=== PATIENT | male | born 1930 | race Caucasian/White ===

== ENCOUNTER → 2016-09-18 | Outpatient (CLI) | payer MEDICARE, OTHER ==
[2016-09-18 18:09] LABS: BASO % 0.5 % (0.0-1.0); EOS # 0.2 K/mm3 (0.0-0.50); EOS % 2.9 % (0.0-3.0); LARGE UNSTAINED CELL # 0.2 K/mm3 (0.0-0.4); LARGE UNSTAINED CELL % 2.4 % (0.0-4.0); LYMPH # 1.9 K/mm3 (1.5-4.5); LYMPH % 20.8 % (24.0-44.0); MEAN CORPUSCULAR HEMOGLOBIN 31.3 pg (27.0-33.0); MEAN CORPUSCULAR HGB CONC 34.2 g/dl (32.0-36.5); MEAN CORPUSCULAR VOLUME 91.6 fl (80.0-96.0); MONO # 0.5 K/mm3 (0.0-0.8); MONO % 5.4 % (0.0-5.0); NEUTROPHILS # 6.1 K/mm3 (1.8-7.7); NEUTROPHILS % 67.9 % (36.0-66.0); PLATELET COUNT, AUTOMATED 199 k/mm3 (150-450); WHITE BLOOD COUNT 8.9 K/mm3 (4.0-10.0)
[2016-09-18 18:37] LABS: ALBUMIN 4.2 GM/DL (3.2-5.2); ALBUMIN/GLOBULIN RATIO 1.31 (1.00-1.93); ALKALINE PHOSPHATASE 72 U/L (45-117); ALT/SGPT 21 U/L (12-78); ANION GAP 9 MEQ/L (8-16); AST/SGOT 25 U/L (15-37); BILIRUBIN,TOTAL 0.8 MG/DL (0.2-1.0); BLOOD UREA NITROGEN 17 MG/DL (7-18); CALCIUM LEVEL 9.7 MG/DL (8.8-10.2); CARBON DIOXIDE LEVEL 33 MEQ/L (21-32); CHLORIDE LEVEL 102 MEQ/L (98-107); CREATININE FOR GFR 1.14 MG/DL (0.70-1.30); GLOMERULAR FILTRATION RATE > 60.0 (>35); GLUCOSE, FASTING 84 MG/DL (83-110); POTASSIUM SERUM 4.2 MEQ/L (3.5-5.1); SODIUM LEVEL 144 MEQ/L (136-145); TOTAL PROTEIN 7.4 GM/DL (6.4-8.2)
[2016-09-18 21:17] LABS: ERYTHROCYTE SEDIMENTATION RATE 2 mm/hr (0-30)
== END ==
LOC: M SMT 13:25
PROVIDERS: ATTEND Internal Medicine Rheumatology
DX: M05.79 Rheumatoid arthritis with rheumatoid factor of multiple sites without organ or systems involvement (principal); M51.36 Other intervertebral disc degeneration, lumbar region; Z79.899 Other long term (current) drug therapy

== ENCOUNTER → 2016-10-09 | Outpatient (CLI) | payer MEDICARE, OTHER ==
[2016-10-09 13:59] LABS: ALBUMIN 3.7 GM/DL (3.2-5.2); ALBUMIN/GLOBULIN RATIO 1.28 (1.00-1.93); ALKALINE PHOSPHATASE 60 U/L (45-117); ALT/SGPT 17 U/L (12-78); ANION GAP 7 MEQ/L (8-16); AST/SGOT 20 U/L (15-37); BILIRUBIN,TOTAL 0.6 MG/DL (0.2-1.0); BLOOD UREA NITROGEN 15 MG/DL (7-18); CALCIUM LEVEL 8.7 MG/DL (8.8-10.2); CARBON DIOXIDE LEVEL 29 MEQ/L (21-32); CHLORIDE LEVEL 109 MEQ/L (98-107); CHOLESTEROL LEVEL 176 MG/DL (<200); CREATININE FOR GFR 1.16 MG/DL (0.70-1.30); GLOMERULAR FILTRATION RATE > 60.0 (>35); GLUCOSE, FASTING 95 MG/DL (83-110); POTASSIUM SERUM 4.1 MEQ/L (3.5-5.1); SODIUM LEVEL 145 MEQ/L (136-145); TOTAL PROTEIN 6.6 GM/DL (6.4-8.2); TRIGLYCERIDES LEVEL 102 MG/DL (<150)
== END ==
LOC: M SMT 08:22
PROVIDERS: ATTEND Internal Medicine
DX: E78.00 Pure hypercholesterolemia, unspecified (principal); Z85.51 Personal history of malignant neoplasm of bladder

== ENCOUNTER 2017-02-22 06:07 | Day surgery (SDC) | payer MEDICARE, OTHER ==
[~2017-02-22] VITALS: Ht 167.6 cm; Wt 65.8 kg
[~2017-02-22 06:07] MED LIST: ACETAMINOPHEN 325 MG TAB PO PRN; ATOR1TAB19 PO; BETAMETHASONE SOLUSPAN 6MG/ML INJ 5ML (J0702) As Ordered ONE; HEALON DUET (HEALON 10MG/ML 0.55ML & HEALON ENDOCOAT 30MG/ML 0.85ML) As Ordered ONE; HYDR12.55 PO; LIDOCAINE 2% W/EPIN INJ 20ML **PRES FREE As Ordered ONE; LIDOCAINE 4% INJ 5 ML AMP As Ordered ONE; LR 500 ML IV ONE; POVIDONE-IODINE 5% OPHTH PREP SOL 30ML As Ordered ONE; TOBRADEX OPHTH OINT 3.5 GM As Ordered ONE; TOBRAMYCIN INJ 80 MG/2 ML VIAL (J3260) As Ordered ONE; VITA100072 PO; VITA2000 PO; mitoMYcin 0.2 MG/VIAL KIT FOR OPHTHALMIC USE (J7315 PER 0.2MG) As Ordered ONE
[2017-02-22] MEDS ORDERED: LIDOCAINE 3.5 % 1ML OPHTH TOPICAL GEL OU ONE (07:00)
[2017-02-22] MEDS ORDERED: OFLOXACIN 0.3 % (OCUFLOX) OPTH SOL 5ML OS ONE (07:00)
[2017-02-22] MEDS ORDERED: PROPARACAINE 0.5% OPHTH SOL 15ML XX PRN (07:01)
[2017-02-22] MEDS ORDERED: MIDAZOLAM INJ 2 MG/2 ML VIAL (J2250) As Ordered ONE (07:42)
[2017-02-22] MEDS ORDERED: fentaNYL 100 MCG/2 ML INJECTION (J3010) As Ordered ONE (07:42)
[2017-02-22] MEDS ORDERED: AcetaZOLAMIDE 500 MG ER CAP As Ordered ONE (08:48)
[2017-02-22 08:50] VITALS: BP 160/77
[2017-02-22] MEDS ORDERED: AcetaZOLAMIDE 500 MG ER CAP PO ONE (09:00)
[2017-02-22] MEDS ORDERED: KETOROLAC 0.5% OPHTH SOLN XX ONE (09:00)
[2017-02-22] MEDS ORDERED: TRIMETHOBENZAMIDE 300 MG CAP PO PRN (09:00)
--- NOTE | 2017-03-22 14:50 | RO ---
DATE OF PROCEDURE: 02/22/2017 PREPROCEDURE DIAGNOSIS: Painful eye and glaucoma, left eye. POSTPROCEDURE DIAGNOSIS: Painful eye and glaucoma left eye. PROCEDURE: Insertion of express shunt and ECP. SURGEON: Dr. Michael Willis HAIR WEAVER: None. ANESTHESIA: Local IV standby. COMPLICATIONS: None. DESCRIPTION OF PROCEDURE: The patient was brought to the operating room and laid in supine position. The eye was prepped and draped in a sterile fashion for ophthalmic surgery following which a lid speculum was placed. A sideport incision was made and EndoCoat was injected into the anterior chamber. Temporal clear corneal incision was then made with a 2.5 mm keratome and Healon was placed in the ciliary sulcus. Ciliary processes were reviewed on the video screen with the help of the EndoProbe and endocyclophotocoagulation was done 360 degrees at 0.25 milliwatts. Good results were noted as noticed by shrinking of the ciliary processes on the video screen. After that, the excess viscoelastic was aspirated. The wound was closed using #10-0 nylon suture and attention was then diverted towards placement of the X-PRESS shunt. Limbal base conjunctival peritomy was done all the way to the blue line followed by hemostasis as necessary. A limbal base scleral flap measuring 4 mm x 3 mm was then created and lifted and the anterior chamber was entered underneath it with the help of the 27-gauge needle which was subsequently withdrawn. Through the same track, an EXPRESS shunt was placed and was draped over by the scleral flap. Conjunctiva was then flat to making the flap. Mitomycin 0.2 mg/mL was placed over the scleral flap for 3 minutes followed by copious irrigation with balanced salt solution. Conjunctiva was then closed using #8-0 Vicryl sutures. No leaks were noted. The lid speculum was removed. TobraDex ointment was applied. The eye was patched and the patient was returned to the recovery room in stable condition. SANDRITA
== END 2017-02-22 08:55 | disposition home or self-care (01) ==
LOC: M SDC 06:07
PROVIDERS: ATTEND Ophthalmology
DX: H40.9 Unspecified glaucoma (principal); H57.12 Ocular pain, left eye; I10 Essential (primary) hypertension; E78.00 Pure hypercholesterolemia, unspecified; K21.9 Gastro-esophageal reflux disease without esophagitis; M06.9 Rheumatoid arthritis, unspecified; T88.59XD Other complications of anesthesia, subsequent encounter; Z79.899 Other long term (current) drug therapy; Z79.82 Long term (current) use of aspirin; Z87.891 Personal history of nicotine dependence; Z87.448 Personal history of other diseases of urinary system
CPT/HCPCS: 66183; 66711; C1783; J2250; J3010; J7315

== ENCOUNTER → 2017-03-15 | Outpatient (CLI) | payer MEDICARE, OTHER ==
[~2017-03-15] MED LIST changes: -ACETAMINOPHEN 325 MG TAB PO PRN; -BETAMETHASONE SOLUSPAN 6MG/ML INJ 5ML (J0702) As Ordered ONE; -HEALON DUET (HEALON 10MG/ML 0.55ML & HEALON ENDOCOAT 30MG/ML 0.85ML) As Ordered ONE; -LIDOCAINE 2% W/EPIN INJ 20ML **PRES FREE As Ordered ONE; -LIDOCAINE 4% INJ 5 ML AMP As Ordered ONE; -LR 500 ML IV ONE; -POVIDONE-IODINE 5% OPHTH PREP SOL 30ML As Ordered ONE; -TOBRADEX OPHTH OINT 3.5 GM As Ordered ONE; -TOBRAMYCIN INJ 80 MG/2 ML VIAL (J3260) As Ordered ONE; -mitoMYcin 0.2 MG/VIAL KIT FOR OPHTHALMIC USE (J7315 PER 0.2MG) As Ordered ONE
[2017-03-15 13:44] LABS: BASO # 0.1 K/mm3 (0.0-0.2); BASO % 0.8 % (0.0-1.0); EOS # 0.1 K/mm3 (0.0-0.50); EOS % 1.6 % (0.0-3.0); LARGE UNSTAINED CELL # 0.1 K/mm3 (0.0-0.4); LARGE UNSTAINED CELL % 1.1 % (0.0-4.0); LYMPH # 1.7 K/mm3 (1.5-4.5); LYMPH % 19.5 % (24.0-44.0); MEAN CORPUSCULAR HEMOGLOBIN 31.1 pg (27.0-33.0); MEAN CORPUSCULAR HGB CONC 34.3 g/dl (32.0-36.5); MEAN CORPUSCULAR VOLUME 90.7 fl (80.0-96.0); MONO # 0.6 K/mm3 (0.0-0.8); MONO % 6.7 % (0.0-5.0); NEUTROPHILS # 5.9 K/mm3 (1.8-7.7); NEUTROPHILS % 70.3 % (36.0-66.0); PLATELET COUNT, AUTOMATED 179 k/mm3 (150-450); RED CELL DISTRIBUTION WIDTH 12.8 % (11.5-14.5); WHITE BLOOD COUNT 8.3 K/mm3 (4.0-10.0)
[2017-03-15 13:51] LABS: ALBUMIN 3.6 GM/DL (3.2-5.2); ALBUMIN/GLOBULIN RATIO 1.13 (1.00-1.93); ALKALINE PHOSPHATASE 74 U/L (45-117); ALT/SGPT 22 U/L (12-78); ANION GAP 8 MEQ/L (8-16); AST/SGOT 21 U/L (15-37); BILIRUBIN,TOTAL 0.6 MG/DL (0.2-1.0); BLOOD UREA NITROGEN 12 MG/DL (7-18); CALCIUM LEVEL 8.6 MG/DL (8.8-10.2); CARBON DIOXIDE LEVEL 28 MEQ/L (21-32); CHLORIDE LEVEL 107 MEQ/L (98-107); CREATININE FOR GFR 1.13 MG/DL (0.70-1.30); GLOMERULAR FILTRATION RATE > 60.0 (>35); GLUCOSE, FASTING 76 MG/DL (83-110); POTASSIUM SERUM 4.3 MEQ/L (3.5-5.1); SODIUM LEVEL 143 MEQ/L (136-145); TOTAL PROTEIN 6.8 GM/DL (6.4-8.2)
== END ==
LOC: M SMT 09:38
PROVIDERS: ATTEND Internal Medicine Rheumatology
DX: E55.9 Vitamin D deficiency, unspecified (principal); M06.09 Rheumatoid arthritis without rheumatoid factor, multiple sites; M85.39 Osteitis condensans, multiple sites; Z79.899 Other long term (current) drug therapy

== ENCOUNTER → 2017-04-06 | Outpatient (REF) | payer MEDICARE, OTHER ==
[2017-04-06 14:12] LABS: VITAMIN B12 LEVEL 714 PG/ML (247-911)
[2017-04-06 14:15] LABS: MEAN CORPUSCULAR HGB CONC 35.5 g/dl (32.0-36.5); MEAN CORPUSCULAR VOLUME 90.1 fl (80.0-96.0); RED CELL DISTRIBUTION WIDTH 12.8 % (11.5-14.5); WHITE BLOOD COUNT 6.3 K/mm3 (4.0-10.0)
[2017-04-06 14:24] LABS: ALBUMIN 3.7 GM/DL (3.2-5.2); ALBUMIN/GLOBULIN RATIO 1.23 (1.00-1.93); ALKALINE PHOSPHATASE 71 U/L (45-117); ALT/SGPT 20 U/L (12-78); ANION GAP 10 MEQ/L (8-16); AST/SGOT 18 U/L (15-37); BILIRUBIN,TOTAL 0.8 MG/DL (0.2-1.0); BLOOD UREA NITROGEN 12 MG/DL (7-18); CALCIUM LEVEL 9.2 MG/DL (8.8-10.2); CARBON DIOXIDE LEVEL 25 MEQ/L (21-32); CHLORIDE LEVEL 108 MEQ/L (98-107); CREATININE FOR GFR 0.99 MG/DL (0.70-1.30); GLOMERULAR FILTRATION RATE > 60.0 (>35); GLUCOSE, FASTING 102 MG/DL (83-110); POTASSIUM SERUM 3.8 MEQ/L (3.5-5.1); SODIUM LEVEL 143 MEQ/L (136-145); TOTAL PROTEIN 6.7 GM/DL (6.4-8.2)
== END ==
LOC: M LABDRAW1 13:32
PROVIDERS: ATTEND Internal Medicine
DX: E78.00 Pure hypercholesterolemia, unspecified (principal); L40.50 Arthropathic psoriasis, unspecified; E53.8 Deficiency of other specified B group vitamins; C67.9 Malignant neoplasm of bladder, unspecified; N40.0 Benign prostatic hyperplasia without lower urinary tract symptoms

== ENCOUNTER → 2017-04-06 | Outpatient (REF) | payer MEDICARE, OTHER | LOC: M LABDRAW1 13:33 | PROVIDERS: ATTEND Urology | DX: C67.9 Malignant neoplasm of bladder, unspecified (principal); N40.0 Benign prostatic hyperplasia without lower urinary tract symptoms ==

== ENCOUNTER → 2017-10-15 | Outpatient (REF) | payer MEDICARE, OTHER ==
[2017-10-15 12:15] LABS: ALBUMIN 3.7 GM/DL (3.2-5.2); ALBUMIN/GLOBULIN RATIO 1.19 (1.00-1.93); ALKALINE PHOSPHATASE 66 U/L (45-117); ALT/SGPT 19 U/L (12-78); ANION GAP 5 MEQ/L (8-16); AST/SGOT 23 U/L (7-37); BILIRUBIN,TOTAL 0.4 MG/DL (0.2-1.0); BLOOD UREA NITROGEN 13 MG/DL (7-18); CALCIUM LEVEL 8.9 MG/DL (8.8-10.2); CARBON DIOXIDE LEVEL 30 MEQ/L (21-32); CHLORIDE LEVEL 108 MEQ/L (98-107); CHOLESTEROL LEVEL 177 MG/DL (<200); CHOLESTEROL RISK RATIO 3.687 (<5); CREATININE FOR GFR 1.15 MG/DL (0.70-1.30); GLOMERULAR FILTRATION RATE > 60.0 (>35); GLUCOSE, FASTING 94 MG/DL (70-100); HDL CHOLESTEROL 48 MG/DL (>40); LDL CHOLESTEROL 105.2 MG/DL (<100); NON-HDL-C 129 MG/DL; SODIUM LEVEL 143 MEQ/L (136-145); TOTAL PROTEIN 6.8 GM/DL (6.4-8.2); TRIGLYCERIDES LEVEL 119 MG/DL (<150)
== END ==
LOC: M SFHCPLAZ 07:56
DX: E78.00 Pure hypercholesterolemia, unspecified (principal); Z85.51 Personal history of malignant neoplasm of bladder
CPT/HCPCS: 80053

== ENCOUNTER → 2018-04-09 | Outpatient (REF) | payer MEDICARE, OTHER ==
[2018-04-09 11:51] LABS: BASO # 0.1 10^3/uL (0.0-0.2); BASO % 0.9 % (0.0-1.0); EOS # 0.2 10^3/uL (0.0-0.50); EOS % 2.5 % (0.0-3.0); HEMATOCRIT 48.7 % (42.0-52.0); HEMOGLOBIN 16.8 g/dl (13.5-17.5); IMMATURE GRANULOCYTE % 0.3 % (0-3.0); LYMPH # 1.8 10^3/uL (1.5-4.5); LYMPH % 27.3 % (24.0-44.0); MEAN CORPUSCULAR HGB CONC 34.5 g/dl (32.0-36.5); MEAN CORPUSCULAR VOLUME 89.9 fl (80.0-96.0); MONO # 0.5 10^3/uL (0.0-0.8); MONO % 7.9 % (0.0-5.0); NEUTROPHILS # 4.1 10^3/uL (1.8-7.7); NEUTROPHILS % 61.1 % (36.0-66.0); PLATELET COUNT, AUTOMATED 174 10^3/uL (150-450); RED BLOOD COUNT 5.42 10^6/uL (4.30-6.10); RED CELL DISTRIBUTION WIDTH 13.1 % (11.5-14.5); WHITE BLOOD COUNT 6.7 10^3/uL (4.0-10.0)
[2018-04-09 12:36] LABS: ALBUMIN/GLOBULIN RATIO 1.29 (1.00-1.93); ALKALINE PHOSPHATASE 65 U/L (45-117); ALT/SGPT 21 U/L (12-78); ANION GAP 12 MEQ/L (8-16); AST/SGOT 21 U/L (7-37); BILIRUBIN,TOTAL 0.6 MG/DL (0.2-1.0); BLOOD UREA NITROGEN 12 MG/DL (7-18); CALCIUM LEVEL 9.2 MG/DL (8.8-10.2); CARBON DIOXIDE LEVEL 28 MEQ/L (21-32); CHLORIDE LEVEL 103 MEQ/L (98-107); GLOMERULAR FILTRATION RATE > 60.0 (>35); GLUCOSE, FASTING 82 MG/DL (70-100); SODIUM LEVEL 143 MEQ/L (136-145); TOTAL PROTEIN 7.1 GM/DL (6.4-8.2)
[2018-04-09 13:31] LABS: TOTAL 25(OH) VITAMIN D 18.8 NG/ML (30.0-100.0)
== END ==
LOC: M SFHCPLAZ 09:09
DX: Z79.899 Other long term (current) drug therapy (principal)
CPT/HCPCS: 82607

== ENCOUNTER 2018-07-16 03:56 | Emergency (ER) | payer MEDICARE, OTHER ==
[~2018-07-16] VITALS: Ht 165.1 cm; Wt 70.5 kg
[2018-07-16 04:49] LABS: BASO # 0.1 10^3/uL (0.0-0.2); BASO % 0.8 % (0.0-1.0); EOS # 0.1 10^3/uL (0.0-0.50); EOS % 1.8 % (0.0-3.0); HEMATOCRIT 47.8 % (42.0-52.0); HEMOGLOBIN 16.7 g/dl (13.5-17.5); LYMPH # 1.8 10^3/uL (1.5-4.5); LYMPH % 24.5 % (24.0-44.0); MEAN CORPUSCULAR HEMOGLOBIN 31.2 pg (27.0-33.0); MEAN CORPUSCULAR HGB CONC 34.9 g/dl (32.0-36.5); MEAN CORPUSCULAR VOLUME 89.3 fl (80.0-96.0); MONO # 0.7 10^3/uL (0.0-0.8); MONO % 9.8 % (0.0-5.0); NEUTROPHILS # 4.6 10^3/uL (1.8-7.7); NEUTROPHILS % 62.6 % (36.0-66.0); PLATELET COUNT, AUTOMATED 160 10^3/uL (150-450); RED BLOOD COUNT 5.35 10^6/uL (4.30-6.10); WHITE BLOOD COUNT 7.4 10^3/uL (4.0-10.0)
[2018-07-16] MEDS ORDERED: MORPHINE 4 MG/ML 1ML VIAL/SYRINGE (J2270) As Ordered ONE (04:58)
[2018-07-16] MEDS ORDERED: MORPHINE 4 MG/ML 1ML VIAL/SYRINGE (J2270) IV ONE (05:00)
[2018-07-16 05:01] LABS: INR 0.92; PROTHROMBIN TIME 12.4 SECONDS (12.1-14.4)
[2018-07-16 05:02] LABS: PARTIAL THROMBOPLASTIN TIME 26.3 SECONDS (25.4-37.6)
[2018-07-16 05:16] LABS: BLOOD UREA NITROGEN 18 MG/DL (7-18); CALCIUM LEVEL 8.8 MG/DL (8.8-10.2); CARBON DIOXIDE LEVEL 25 MEQ/L (21-32); CHLORIDE LEVEL 103 MEQ/L (98-107); CPK CREATINE PHOSPHOKINASE 174 U/L (39-308); CREATININE FOR GFR 1.21 MG/DL (0.70-1.30); GLOMERULAR FILTRATION RATE > 60.0 (>35); GLUCOSE, FASTING 121 MG/DL (70-100); MB/CK RELATIVE INDEX 2.24 (< OR =4); POTASSIUM SERUM 3.7 MEQ/L (3.5-5.1); SODIUM LEVEL 139 MEQ/L (136-145); TROPONIN I < 0.02 NG/ML (< 0.10)
[2018-07-16] MEDS ORDERED: ISOVUE-370 76% 100ML VIAL (Q9967) As Ordered ONE (05:25)
--- NOTE | 2018-07-16 07:02 | REPVR ---
EXAM: CT Angiography Neck With Contrast EXAM DATE/TIME: 07/16/2018 5:21 AM CLINICAL HISTORY: 88 years old, male; Pain; Other: Radiates to arm; Additional info: Neck pain rad to r arm TECHNIQUE: Axial computed tomographic angiography images of the neck with intravenous contrast using CT angiography protocol. All CT scans at this facility use at least one of these dose optimization techniques: automated exposure control; mA and/or kV adjustment per patient size (includes targeted exams where dose is matched to clinical indication); or iterative reconstruction. Coronal and sagittal reformatted images were created and reviewed. MIP reconstructed images were created and reviewed. CONTRAST: 75 ml of iso administered intravenously. COMPARISON: No relevant prior studies available. FINDINGS: VASCULATURE: Right common carotid artery: There is a small amount of noncalcified plaque in the right common carotid artery. There is a small amount of calcified and noncalcified plaque at the right carotid bulb. Right internal carotid artery: There is a small amount of plaque without significant luminal narrowing at the proximal right internal carotid artery. There is tortuosity of the proximal right internal carotid artery. Right external carotid artery: There is calcified plaque without significant luminal narrowing at the origin of the right external carotid artery. Right vertebral artery: Normal. No significant stenosis. No dissection or occlusion. Left common carotid artery: There is a small amount of noncalcified plaque within the left common carotid artery, without significant luminal narrowing. There is calcified and noncalcified plaque at the left carotid bulb. Left internal carotid artery: There is mild narrowing of the proximal left internal carotid artery, with the stenosis estimated at less than 50% narrowing. The lumen measures 4 mm at its narrowest and 5 mm a short distance further distally. Left external carotid artery: There is a small amount of plaque at the origin of the left external carotid artery, without significant narrowing. Left vertebral artery: No occlusion, significant stenosis, or dissection. Aorta: There is prominent, asymmetric, and mostly noncalcified plaque within the arch of the thoracic aorta. There is no evidence of dissection in the visualized portions of the thoracic aorta. NECK: Retropharyngeal space: The prevertebral soft tissues appear normal. Bones/joints: Degenerative endplate changes are seen at multiple levels in the visualized spine, with disc narrowing most prominent at C5-C6 and C6-C7. Hypertrophic degenerative changes are seen at the articulation of the odontoid process with the anterior arch of C1. Degenerative facet arthropathy is seen at multiple levels in the cervical spine. Soft tissues: Normal. No significant soft tissue swelling. Lung apices: There is minimal paraseptal emphysema in the lung apices. There is mild groundglass opacity in the left upper lobe, abutting the fissure. Esophagus: Fluid is noted in the lumen of the upper esophagus. IMPRESSION: 1. Asymmetric, predominantly noncalcified plaque in the arch of the aorta. 2. Calcified and noncalcified plaque within the bilateral cervical carotid arteries. Mild narrowing estimated at less than 50% stenosis in the proximal left internal carotid artery. No significant stenosis, occlusion, or dissection identified. COMMENT: Reference per NASCET criteria for degree of stenosis: Mild: <50% stenosis. Moderate: 50-69% stenosis. Severe: 70-94% stenosis. Near occlusion: 95-99% stenosis. Electronically signed by: Cally Schultz On 07/16/2018 07:02:35 AM
[2018-07-16 07:30] VITALS: BP 160/85
--- NOTE | 2018-07-16 08:11 | ECGEPIP ---
Stationary ECG Study [facility] - ED Test Date: 2018-07-16 Pat Name: BRANDON PEREZ Department: Room: - Gender: M Extra Hand: lopez : 1930 Requested By: KATIUSKA Norman Order Number: [id number] Reading MD: Francesca France Measurements Intervals [place] Rate: 80 P: -12 VA: 233 QRS: -13 QRSD: 95 T: 73 QT: 279 QTc: 322 Interpretive Statements SINUS RHYTHM WITH FIRST DEGREE AV BLOCK NONSPECIFIC T-WAVE ABNORMALITY ?PRIOR INFERIOR INFARCT NO PRIOR FOR COMPARISON Electronically Signed On 07-16-2018 8:10:45 EST by rFancesca France
--- NOTE | 2018-07-16 13:01 | ED PDOC ---
Post-Departure Follow-Up radiology report faxed to Francesca Dial MD Jul 16, 2018 13:01
== END 2018-07-16 08:07 | disposition home or self-care (01) ==
LOC: M ED 03:56
DX: M50.30 Other cervical disc degeneration, unspecified cervical region (principal); Z87.891 Personal history of nicotine dependence
CPT/HCPCS: 70498; 80048; 82550; 82553; 84484; 85025; 85610; 85730; 93005; 93041; 94760; 96374; 99285; J2270; Q9967

== ENCOUNTER 2018-08-29 10:05 | Outpatient (RCR) | payer MEDICARE, OTHER | END 2018-09-12 | LOC: M PT 10:05 | PROVIDERS: ATTEND Internal Medicine | DX: M54.2 Cervicalgia (principal) ==

== ENCOUNTER → 2018-11-12 | Outpatient (RCR) | payer MEDICARE, OTHER ==
[~2018-11-12] MED LIST changes: +VITA100018 PO; -VITA100072 PO
== END ==
LOC: M PT 10-29 10:18
PROVIDERS: ATTEND Orthopaedic Surgery
DX: M75.41 Impingement syndrome of right shoulder (principal)

== ENCOUNTER → 2019-07-10 | Outpatient (CLI) | payer MEDICARE, OTHER ==
[2019-07-10 10:16] LABS: HEMATOCRIT 50.5 % (42.0-52.0); HEMOGLOBIN 16.7 g/dl (13.5-17.5); MEAN CORPUSCULAR HEMOGLOBIN 30.6 pg (27.0-33.0); MEAN CORPUSCULAR HGB CONC 33.1 g/dl (32.0-36.5); MEAN CORPUSCULAR VOLUME 92.7 fl (80.0-96.0); PLATELET COUNT, AUTOMATED 173 10^3/uL (150-450); RED BLOOD COUNT 5.45 10^6/uL (4.30-6.10); WHITE BLOOD COUNT 6.4 10^3/uL (4.0-10.0)
[2019-07-10 10:58] LABS: ALBUMIN 3.7 GM/DL (3.2-5.2); ALT/SGPT 17 U/L (12-78); BILIRUBIN,TOTAL 0.7 MG/DL (0.2-1.0); BLOOD UREA NITROGEN 15 MG/DL (7-18); CALCIUM LEVEL 8.8 MG/DL (8.8-10.2); CARBON DIOXIDE LEVEL 27 MEQ/L (21-32); CHLORIDE LEVEL 106 MEQ/L (98-107); CHOLESTEROL LEVEL 230 MG/DL (<200); CHOLESTEROL RISK RATIO 4.893 (<5); CREATININE FOR GFR 1.04 MG/DL (0.70-1.30); GLOMERULAR FILTRATION RATE > 60.0 (>35); GLUCOSE, FASTING 94 MG/DL (70-100); HDL CHOLESTEROL 47 MG/DL (>40); LDL CHOLESTEROL 160 MG/DL (<100); MAGNESIUM LEVEL 2.3 MG/DL (1.8-2.4); NON-HDL-C 183 MG/DL; POTASSIUM SERUM 3.9 MEQ/L (3.5-5.1); SODIUM LEVEL 142 MEQ/L (136-145); TOTAL 25(OH) VITAMIN D 27.6 NG/ML (30.0-100.0); TOTAL PROTEIN 6.8 GM/DL (6.4-8.2); TRIGLYCERIDES LEVEL 113 MG/DL (<150)
== END ==
LOC: M PLALAB 08:15
PROVIDERS: ATTEND Internal Medicine
DX: F03.90 Unspecified dementia, unspecified severity, without behavioral disturbance, psychotic disturbance, mood disturbance, and anxiety (principal); E55.9 Vitamin D deficiency, unspecified; Z86.010 Personal history of colon polyps; Z85.51 Personal history of malignant neoplasm of bladder; E78.00 Pure hypercholesterolemia, unspecified; I10 Essential (primary) hypertension

== ENCOUNTER → 2020-01-21 | Outpatient (REF) | payer MEDICARE, OTHER ==
[2020-01-21 12:19] LABS: ALBUMIN 3.7 GM/DL (3.2-5.2); ALT/SGPT 20 U/L (12-78); BILIRUBIN,TOTAL 0.6 MG/DL (0.2-1.0); BLOOD UREA NITROGEN 10 MG/DL (7-18); CALCIUM LEVEL 8.8 MG/DL (8.8-10.2); CARBON DIOXIDE LEVEL 27 MEQ/L (21-32); CHLORIDE LEVEL 111 MEQ/L (98-107); CHOLESTEROL LEVEL 180 MG/DL (<200); CHOLESTEROL RISK RATIO 3.333 (<5); CREATININE FOR GFR 1.02 MG/DL (0.70-1.30); GLOMERULAR FILTRATION RATE > 60.0 (>35); GLUCOSE, FASTING 97 MG/DL (70-100); HDL CHOLESTEROL 54 MG/DL (>40); LDL CHOLESTEROL 110 MG/DL (<100); MAGNESIUM LEVEL 2.2 MG/DL (1.8-2.4); NON-HDL-C 126 MG/DL; POTASSIUM SERUM 3.9 MEQ/L (3.5-5.1); SODIUM LEVEL 142 MEQ/L (136-145); TOTAL PROTEIN 6.8 GM/DL (6.4-8.2); TRIGLYCERIDES LEVEL 80 MG/DL (<150)
== END ==
LOC: M PLALAB 08:07
PROVIDERS: ATTEND Internal Medicine
DX: I10 Essential (primary) hypertension (principal); E78.00 Pure hypercholesterolemia, unspecified

== ENCOUNTER → 2020-07-27 | Outpatient (REF) | payer MEDICARE, OTHER ==
[2020-07-27 10:42] LABS: HEMATOCRIT 49.4 % (42.0-52.0); HEMOGLOBIN 16.2 g/dl (13.5-17.5); MEAN CORPUSCULAR HEMOGLOBIN 30.3 pg (27.0-33.0); MEAN CORPUSCULAR HGB CONC 32.8 g/dl (32.0-36.5); MEAN CORPUSCULAR VOLUME 92.3 fl (80.0-96.0); PLATELET COUNT, AUTOMATED 197 10^3/uL (150-450); RED BLOOD COUNT 5.35 10^6/uL (4.30-6.10); WHITE BLOOD COUNT 7.3 10^3/uL (4.0-10.0)
[2020-07-27 11:12] LABS: ALBUMIN 3.9 GM/DL (3.2-5.2); ALT/SGPT 24 U/L (12-78); BILIRUBIN,TOTAL 0.4 MG/DL (0.2-1.0); BLOOD UREA NITROGEN 19 MG/DL (7-18); CARBON DIOXIDE LEVEL 32 MEQ/L (21-32); CHLORIDE LEVEL 103 MEQ/L (98-107); CREATININE FOR GFR 1.08 MG/DL (0.70-1.30); GLOMERULAR FILTRATION RATE > 60.0 (>35); GLUCOSE, FASTING 100 MG/DL (70-100); MAGNESIUM LEVEL 2.3 MG/DL (1.8-2.4); POTASSIUM SERUM 3.5 MEQ/L (3.5-5.1); SODIUM LEVEL 139 MEQ/L (136-145); TOTAL PROTEIN 7.2 GM/DL (6.4-8.2)
[2020-07-27 11:17] LABS: TOTAL 25(OH) VITAMIN D 25.9 NG/ML (30.0-100.0)
== END ==
LOC: M PLALAB 07:59
PROVIDERS: ATTEND Internal Medicine
DX: Z85.51 Personal history of malignant neoplasm of bladder (principal); I10 Essential (primary) hypertension; E55.9 Vitamin D deficiency, unspecified

== ENCOUNTER → 2020-11-02 | Outpatient (CLI) | payer MEDICARE, OTHER ==
--- NOTE | 2020-11-02 13:03 | REPPI ---
INDICATION: NECK PAIN. COMPARISON: Comparison cervical spine radiographs are from October 09, 2017.. TECHNIQUE: Nine views.. FINDINGS: Lateral views done in flexion, extension, and neutral position show straightening but otherwise normal alignment. No subluxation or instability is seen. There is a stable 3 mm anterior subluxation of C4 on C5. There are degenerative disc changes at C5-6 and C6-7 which are stable from the prior study. 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 Facet joint osteoarthritic changes are noted bilaterally in the mid cervical spine radiographically unchanged. Oblique images demonstrate uncovertebral spurring and facet narrowing of the left C4-5 C5-6 and C6-7 neural foramina. On the right there is bony neural foraminal encroachment at C5-6 and C6-7 and to a lesser extent C3-4. Open mouth odontoid view shows C1-C2 facet arthropathy. IMPRESSION: Moderate degenerative spondylosis changes essentially status "from the prior study. <Electronically signed by Randell Richter > 11/02/20 2521
== END ==
LOC: M PLAIMG 10:43
PROVIDERS: ATTEND Physician Assistant
DX: M50.322 Other cervical disc degeneration at C5-C6 level (principal); M50.323 Other cervical disc degeneration at C6-C7 level
CPT/HCPCS: 72052; G0463

== ENCOUNTER → 2021-01-21 | Outpatient (CLI) | payer MEDICARE, OTHER ==
[2021-01-21 13:10] LABS: BASO # 0.1 10^3/uL (0.0-0.2); BASO % 1.1 % (0.0-1.0); EOS # 0.2 10^3/uL (0.0-0.5); EOS % 2.4 % (0.0-3.0); HEMATOCRIT 49.6 % (42.0-52.0); HEMOGLOBIN 16.1 g/dl (13.5-17.5); LYMPH # 2.1 10^3/uL (1.5-5.0); LYMPH % 28.8 % (24.0-44.0); MEAN CORPUSCULAR HEMOGLOBIN 29.5 pg (27.0-33.0); MEAN CORPUSCULAR HGB CONC 32.5 g/dl (32.0-36.5); MEAN CORPUSCULAR VOLUME 90.8 fl (80.0-96.0); MONO # 0.6 10^3/uL (0.0-0.8); MONO % 7.8 % (2.0-8.0); NEUTROPHILS # 4.3 10^3/uL (1.5-8.5); NEUTROPHILS % 59.8 % (36.0-66.0); PLATELET COUNT, AUTOMATED 175 10^3/uL (150-450); RED BLOOD COUNT 5.46 10^6/uL (4.30-6.10); WHITE BLOOD COUNT 7.2 10^3/uL (4.0-10.0)
[2021-01-21 13:45] LABS: ALBUMIN 3.6 GM/DL (3.2-5.2); ALT/SGPT 18 U/L (12-78); BILIRUBIN,TOTAL 0.5 MG/DL (0.2-1.0); BLOOD UREA NITROGEN 11 MG/DL (7-18); CALCIUM LEVEL 8.8 MG/DL (8.8-10.2); CARBON DIOXIDE LEVEL 30 MEQ/L (21-32); CHLORIDE LEVEL 106 MEQ/L (98-107); CHOLESTEROL LEVEL 230 MG/DL (<200); CHOLESTEROL RISK RATIO 4.339 (<5); CREATININE FOR GFR 1.08 MG/DL (0.70-1.30); GLOMERULAR FILTRATION RATE > 60.0 (>35); GLUCOSE, FASTING 95 MG/DL (70-100); HDL CHOLESTEROL 53 MG/DL (>40); LDL CHOLESTEROL 156 MG/DL (<100); NON-HDL-C 177 MG/DL; POTASSIUM SERUM 4.2 MEQ/L (3.5-5.1); SODIUM LEVEL 141 MEQ/L (136-145); TRIGLYCERIDES LEVEL 107 MG/DL (<150)
== END ==
LOC: M PLALAB 10:29
PROVIDERS: ATTEND Internal Medicine
DX: Z11.59 Encounter for screening for other viral diseases (principal); E78.00 Pure hypercholesterolemia, unspecified